=== PATIENT | male | born 1975 | race Caucasian/White ===

== ENCOUNTER 2018-04-19 05:38 | Emergency (ER) | payer MEDICAID ==
[~2018-04-19] VITALS: Ht 180.3 cm; Wt 119.3 kg
[2018-04-19 05:57] VITALS: BP 129/65
== END 2018-04-19 07:00 | disposition home or self-care (01) ==
LOC: ED 05:38
DX: M10.9 Gout, unspecified (principal); Z90.89 Acquired absence of other organs
CPT/HCPCS: J1885

== ENCOUNTER 2019-05-18 18:11 | Emergency (ER) | payer OTHER ==
[~2019-05-18] VITALS: Ht 180.3 cm; Wt 112.5 kg
[2019-05-18 18:16] VITALS: BP 144/94; Ht 180.3 cm; Wt 112.5 kg
== END 2019-05-18 18:49 | disposition home or self-care (01) ==
LOC: ED 18:11
DX: J06.9 Acute upper respiratory infection, unspecified (principal)
CPT/HCPCS: 87804

== ENCOUNTER 2019-05-19 20:03 | Emergency (ER) | payer OTHER ==
[~2019-05-19] VITALS: Ht 172.7 cm; Wt 112.5 kg
[2019-05-19 20:12] VITALS: BP 116/88; Ht 172.7 cm; Wt 112.5 kg
== END 2019-05-19 22:41 | disposition left against medical advice (07) ==
LOC: ED 20:03
DX: Z53.21 Procedure and treatment not carried out due to patient leaving prior to being seen by health care provider (principal)

== ENCOUNTER 2019-10-31 17:39 | Emergency (ER) | payer OTHER ==
[~2019-10-31] VITALS: Ht 180.3 cm; Wt 115.2 kg
[2019-10-31 17:46] VITALS: Ht 180.3 cm; Wt 115.2 kg
[2019-10-31 18:27] LABS: microscopic required? NO
[2019-10-31 18:33] LABS: urine erythrocyte NEGATIVE (NEGATIVE)
[2019-10-31 18:40] LABS: BASOPHIL % 0.4 % (0-2); PLATELET COUNT 226 x10^3mcL (130-400); RED CELL DISTRIBUTION WIDTH 12.5 % (11.5-14.5)
[2019-10-31 18:50] LABS: AMPHETAMINE QUAL UR POSITIVE (See below)
[2019-10-31 18:53] LABS: CALCIUM 8.9 mg/dL (8.5-10.1); CARBON DIOXIDE 26.1 mmol/L (21-32); CHLORIDE SERUM 92 mmol/L (98-107); CREATININE SERUM 1.3 mg/dL (0.7-1.3); GFR1 > 60 mL/min; POTASSIUM SERUM 4.1 mmol/L (3.5-5.1); SODIUM SERUM 129 mmol/L (136-145)
[2019-10-31 18:54] LABS: ALBUMIN 3.7 g/dL (3.4-5.0); ALKALINE PHOSPHATASE 173 U/L (46-116); ALT/SGPT 58 U/L (16-63); BILIRUBIN TOTAL 0.6 mg/dL (0.20-1.00); TOTAL PROTEIN, SERUM 7.7 g/dL (6.4-8.2)
[2019-10-31 19:04] LABS: T4(THYROXINE) 11.7 ug/dL (4.7-13.3)
[2019-10-31 19:13] LABS: GLUCOSE SERUM 533 mg/dL (74-106)
[2019-10-31 19:15] LABS: AST/SGOT 35 U/L (15-37)
[2019-10-31 22:30] VITALS: BP 110/64
== END 2019-10-31 22:30 | disposition home or self-care (01) ==
LOC: ED 17:39
PROVIDERS: Specialist
DX: E11.65 Type 2 diabetes mellitus with hyperglycemia (principal); N48.1 Balanitis; F17.210 Nicotine dependence, cigarettes, uncomplicated; F15.10 Other stimulant abuse, uncomplicated; M10.9 Gout, unspecified; Z90.89 Acquired absence of other organs; Z98.890 Other specified postprocedural states
CPT/HCPCS: 36600; 82962; 87491; 87591; J1815; J7030; Q0092

== ENCOUNTER 2019-11-02 11:11 | Emergency (ER) | payer OTHER ==
[~2019-11-02] VITALS: Ht 180.3 cm; Wt 112.5 kg
[2019-11-02 11:18] VITALS: Ht 180.3 cm; Wt 112.5 kg
[2019-11-02 11:55] LABS: BASOPHIL % 0.3 % (0-2); PLATELET COUNT 260 x10^3mcL (130-400); RED CELL DISTRIBUTION WIDTH 12.5 % (11.5-14.5)
[2019-11-02 12:22] LABS: CALCIUM 9.2 mg/dL (8.5-10.1); CARBON DIOXIDE 23.5 mmol/L (21-32); CHLORIDE SERUM 94 mmol/L (98-107); CREATININE SERUM 1.2 mg/dL (0.7-1.3); GFR1 > 60 mL/min; GLUCOSE SERUM 371 mg/dL (74-106); POTASSIUM SERUM 3.7 mmol/L (3.5-5.1); SODIUM SERUM 130 mmol/L (136-145)
[2019-11-02 12:32] LABS: ALBUMIN 3.7 g/dL (3.4-5.0); ALKALINE PHOSPHATASE 116 U/L (46-116); ALT/SGPT 49 U/L (16-63); AST/SGOT 17 U/L (15-37); BILIRUBIN TOTAL 0.7 mg/dL (0.20-1.00); TOTAL PROTEIN, SERUM 8.1 g/dL (6.4-8.2)
[2019-11-02 14:23] VITALS: BP 124/71
== END 2019-11-02 14:23 | disposition home or self-care (01) ==
LOC: ED 11:11
PROVIDERS: Emergency Medicine
DX: E86.0 Dehydration (principal); E11.65 Type 2 diabetes mellitus with hyperglycemia; F15.93 Other stimulant use, unspecified with withdrawal; Z90.89 Acquired absence of other organs
CPT/HCPCS: 82962; J7030